=== PATIENT | male | born 1955 | race Caucasian/White ===

== ENCOUNTER 2020-11-26 17:33 | Inpatient (IN) | payer MEDICARE, OTHER ==
[~2020-11-26] VITALS: Ht 162.6 cm; Wt 78.9 kg
[~2020-11-26 17:33] MED LIST: ALBU8.5H8 IH; BUPR-93 PO; BUSP15 PO; DOXY100C5 PO; GABA800T9 PO; LEVO200T10 PO; OLAN5TAB2 PO; OLAN5TAB76 PO; PRED5TAB PO
[2020-11-26 18:10] LABS: BASOPHILS % (AUTO) 0.1 % (0.0-5.0); EOSINOPHILS % (AUTO) 0.4 % (0.0-8.0); HEMATOCRIT 29.7 % (42-54); LYMPHOCYTES % (AUTO) 19.2 % (21.0-51.0); MEAN CORPUSCULAR HEMOGLOBIN 22.6 pg (27.0-33.0); NEUTROPHILS % (AUTO) 74.1 % (40.0-77.0); PLATELET COUNT (AUTO) 330 K/uL (130-400); RED BLOOD CELL COUNT(AUTO) 4.07 MIL/uL (4.50-6.20); RED CELL DISTRIBUTION WIDTH 22.5 % (11.0-15.5); WHITE BLOOD COUNT (AUTO) 8.1 K/uL (4.8-10.8)
[2020-11-26 18:17] LABS: ABG BASE EXCESS 5.8 mmol/L (-2.0-3.0); ABG HCO3 29.6 mmol/L (21.0-28.0); ABG OXYGEN SATURATION 99.1 % (95.0-99.0); ABG PCO2 40 mmHg (35-48)
[2020-11-26] MEDS ORDERED: IPRATROPIUM/ALBUTEROL SULFATE 3 ML SOLUTION IH ONE ×2 (18:23→20:57)
[2020-11-26 18:26] LABS: CREATININE 0.7 mg/dL (0.5-1.5)
[2020-11-26 18:27] LABS: INR 0.96 (0.85-1.15); PROTHROMBIN TIME 10.3 SEC (9.6-11.6)
[2020-11-26] MEDS ORDERED: ASPIRIN 325 MG TABLET ONE (18:27)
[2020-11-26] MEDS ORDERED: SOLU-MEDROL 125MG VIAL ONE (18:27)
[2020-11-26 18:29] LABS: PARTIAL THROMBOPLASTIN TIME 21.9 SEC (26.3-35.5)
[2020-11-26 18:31] LABS: ALBUMIN 3.4 g/dL (3.5-5.0); BILIRUBIN,TOTAL 0.2 mg/dL (0.2-1.0); TOTAL PROTEIN, SERUM 6.4 g/dL (6.0-8.3)
[2020-11-26 18:34] LABS: BILIRUBIN,URINE Negative (NEGATIVE); COLOR,URINE Yellow (YELLOW); GLUCOSE, URINE (UA) Negative (NEGATIVE); KETONES,URINE Negative (NEGATIVE); LEUKOCYTE ESTERASE ,URINE Negative (NEGATIVE); NITRATE,URINE Negative (NEGATIVE); OCCULT BLOOD,URINE Negative (NEGATIVE); PROTEIN,URINE Negative (NEGATIVE)
[2020-11-26 18:48] LABS: APPEARANCE,URINE CLEAR (CLEAR)
[2020-11-26] MEDS ORDERED: ONDANSETRON 4MG INJ ONE (20:15)
[2020-11-26] MEDS ORDERED: MORPHINE 4 MG SYG ONE (20:15)
[2020-11-26] MEDS ORDERED: IOHEXOL-350 75 ML VIAL IV ONE (21:02)
[2020-11-26] MEDS ORDERED: POTASSIUM BICARB/CIT AC 25 MEQ TABLET.EFF ONE (23:38)
[2020-11-27] MEDS ORDERED: CLOPIDOGREL 300MG TAB PO ONE
[2020-11-27] MEDS ORDERED: ATORVASTATIN 20 MG TABLET PO SCH
[2020-11-27] MEDS ORDERED: HEPARIN 25,000 UNITS/250ML D5W 250 ML IV SCH
[2020-11-27] MEDS ORDERED: ONDANSETRON 4MG INJ IV PRN
[2020-11-27] MEDS ORDERED: NITROGLYCERIN 0.4 MG SL TAB SL PRN
[2020-11-27] MEDS ORDERED: NICOTINE 21 MG/ 24 HR PATCH TD SCH
[2020-11-27] MEDS ORDERED: MORPHINE 4 MG SYG IV PRN
[2020-11-27] MEDS ORDERED: ATORVASTATIN 40 MG TABLET ONE (00:46)
[2020-11-27] MEDS ORDERED: CLOPIDOGREL 300MG TAB ONE (00:46)
[2020-11-27] MEDS ORDERED: NITROGLYCERIN 1GM OINT 1 INCH/1GM TD ONE ×2 (00:47→09:30)
[2020-11-27] MEDS ORDERED: HEPARIN 25,000 UNITS/250ML D5W 250 ML IV ONE (00:47)
[2020-11-27] MEDS ORDERED: MORPHINE 4 MG SYG ONE ×2 (00:48→05:54)
[2020-11-27 00:58] LABS: AMPHET/METH SCREEN,URINE NEGATIVE (NEGATIVE); BARBITURATE SCREEN, URINE NEGATIVE (NEGATIVE); BENZODIAZEPINES SCREEN,URINE NEGATIVE (NEGATIVE); CANNABINOID SCREEN,URINE NEGATIVE (NEGATIVE); COCAINE SCREEN,URINE NEGATIVE (NEGATIVE); OPIATE SCREEN,URINE NEGATIVE (NEGATIVE); PHENCYCLIDINE SCREEN,URINE NEGATIVE (NEGATIVE)
[2020-11-27 03:19] LABS: BASOPHILS % (AUTO) 0.2 % (0.0-5.0); HEMATOCRIT 26.4 % (42-54); LYMPHOCYTES % (AUTO) 7.3 % (21.0-51.0); MEAN CORPUSCULAR HEMOGLOBIN 22.3 pg (27.0-33.0); MEAN CORPUSCULAR HGB CONC 31.1 g/dL (32.0-36.0); MEAN CORPUSCULAR VOLUME 71.9 fL (79-99); MONOCYTES % (AUTO) 0.5 % (3.0-13.0); NEUTROPHILS % (AUTO) 91.4 % (40.0-77.0); PLATELET COUNT (AUTO) 304 K/uL (130-400); RED BLOOD CELL COUNT(AUTO) 3.67 MIL/uL (4.50-6.20); RED CELL DISTRIBUTION WIDTH 22.2 % (11.0-15.5); WHITE BLOOD COUNT (AUTO) 6.6 K/uL (4.8-10.8)
[2020-11-27 03:43] LABS: CHOLESTEROL 178 mg/dL (<200); CREATINE KINASE, TOTAL 23 U/L (21-232); HDL CHOLESTEROL 69 mg/dL (29-71); LDL DIRECT 92 mg/dL (0-99); MYOGLOBIN 21 ng/mL (10-92); THYROID STIMULATING HORMONE 7.27 uIU/mL (0.36-3.74); TRIGLYCERIDES 26 mg/dL (30-200); TROPONIN I < 0.04 ng/mL (0.00-0.06)
[2020-11-27] MEDS ORDERED: LIDOCAINE HCL-MPF 1% 2ML VIAL IV PRN (05:00)
[2020-11-27] MEDS ORDERED: POTASSIUM CHLORIDE 10% ELIXIR 20 MEQ/15 ML UDCUP PO PRN (05:00)
[2020-11-27] MEDS ORDERED: POTASSIUM CHLORIDE 20MEQ/100ML 100 ML IV PRN (05:00)
[2020-11-27] MEDS ORDERED: KCL 20 MEQ ERTAB PO PRN (05:00)
[2020-11-27 05:05] LABS: RETICULOCYTE % (AUTO) 1.33 % (0.42-2.23)
[2020-11-27 05:07] LABS: % IRON SATURATION 4.2 % (30-44)
[2020-11-27] MEDS ORDERED: LEVOTHYROXINE 25 MCG TABLET ONE (06:09)
[2020-11-27] MEDS: LEVOTHYROXINE 50 MCG TABLET PO SCH (06:30)
[2020-11-27] MEDS ORDERED: EPOETIN ALFA-EPBX (ESRD) 10,000 UNIT/ML VIAL SQ SCH (07:15)
[2020-11-27] MEDS ORDERED: IRON SUCROSE COMPLEX 300 MG in 0.9%NACL 50ML 50 ML IV SCH (07:15)
[2020-11-27] MEDS: SOLU-MEDROL 40MG VIAL IVP SCH ×3 (07:30→22:42)
[2020-11-27 07:46] LABS: CREATININE 0.9 mg/dL (0.5-1.5); POTASSIUM 4.5 mmol/L (3.5-5.1)
[2020-11-27] MEDS: NITROGLYCERIN 1GM OINT 1 INCH/1GM TD SCH ×3 (08:00→17:49)
[2020-11-27] MEDS ORDERED: IOHEXOL-350 75 ML VIAL IV ONE (08:03)
[2020-11-27 08:26] LABS: HEMATOCRIT 29.3 % (42-54)
[2020-11-27 08:47] LABS: CREATINE KINASE, TOTAL 28 U/L (21-232); MYOGLOBIN 18 ng/mL (10-92); TROPONIN I < 0.04 ng/mL (0.00-0.06)
[2020-11-27] MEDS: CLOPIDOGREL 75MG TAB PO SCH (09:00)
[2020-11-27] MEDS ORDERED: METOPROLOL TARTRATE 25 MG TAB PO SCH (09:00)
[2020-11-27] MEDS: FAMOTIDINE 20MG VIAL IV SCH ×2 (09:00→21:37)
[2020-11-27] MEDS ORDERED: ASPIRIN 325 MG TABLET PO SCH (09:00)
[2020-11-27] MEDS: FERROUS SULFATE 325 MG TABLET.DR PO SCH ×2 (09:00→21:35)
[2020-11-27] MEDS: NICOTINE 21 MG/ 24 HR PATCH TD SCH (09:00)
[2020-11-27] MEDS ORDERED: SOLU-MEDROL 40MG VIAL ONE (09:28)
[2020-11-27] MEDS ORDERED: CLOPIDOGREL 75MG TAB ONE (09:29)
[2020-11-27] MEDS ORDERED: LEVOTHYROXINE 150 MCG TABLET ONE (09:29)
[2020-11-27] MEDS ORDERED: FERROUS SULFATE 325 MG TABLET.DR ONE (09:29)
[2020-11-27] MEDS ORDERED: ASPIRIN 325 MG TABLET ONE (09:29)
[2020-11-27] MEDS ORDERED: FAMOTIDINE 20MG VIAL IV ONE (09:30)
[2020-11-27] MEDS ORDERED: 0.9% NACL 250ML 250 ML IV ONE (09:31)
[2020-11-27] MEDS: IPRATROPIUM/ALBUTEROL SULFATE 3 ML SOLUTION IH SCH ×2 (12:00→18:00)
[2020-11-27] MEDS ORDERED: IOHEXOL 350 MG/ML 100ML INFUS..BTL IV ONE ×2 (12:07→12:13)
[2020-11-27] MEDS ORDERED: LIDOCAINE HCL 400MG/20ML VIAL ONE (12:07)
[2020-11-27] MEDS ORDERED: BIVALIRUDIN 250 MG/VIAL IV ONE (12:07)
[2020-11-27] MEDS ORDERED: IOHEXOL-350 50ML VIAL IV ONE (12:07)
[2020-11-27] MEDS ORDERED: NITROGLYCERIN 2 MG VIAL IV ONE (12:13)
[2020-11-27] MEDS ORDERED: ATROPINE 1MG SYG IVP ONE (12:13)
[2020-11-27] MEDS ORDERED: FENTANYL CITRATE PF 50 MCG/1 ML 2ML VIAL ONE (12:43)
[2020-11-27] MEDS ORDERED: 0.9%NACL 1000ML 1,000 ML IV SCH (13:45)
[2020-11-27 17:30] LABS: CREATINE KINASE, TOTAL 27 U/L (21-232); MYOGLOBIN 22 ng/mL (10-92); TROPONIN I < 0.04 ng/mL (0.00-0.06)
[2020-11-27] MEDS: MORPHINE 2 MG SYG IV PRN ×2 (17:40→22:42)
[2020-11-27] MEDS: BUDESONIDE 0.5 MG/2 ML INH IH SCH (18:00)
[2020-11-27 19:13] LABS: HEMATOCRIT 25.5 % (42-54)
[2020-11-27] MEDS ORDERED: ENOXAPARIN SODIUM 80 MG/0.8 ML SQ SCH (21:00)
[2020-11-27] MEDS ORDERED: ENOXAPARIN SODIUM 1 MG/KG SQ SCH (21:00)
[2020-11-27 21:13] VITALS: BP 121/71
[2020-11-27] MEDS: ALBUTEROL INHALER 90MCG/INH IH SCH (21:34)
[2020-11-27] MEDS: OLANZAPINE 5 MG TAB PO SCH (21:35)
[2020-11-27] MEDS: NAPROXEN 250 MG TAB PO SCH (21:36)
[2020-11-27] MEDS: ATORVASTATIN 40 MG TABLET PO SCH (21:37)
[2020-11-27 23:59] LABS: HEMATOCRIT 24.4 % (42-54)
[2020-11-28] MEDS: NITROGLYCERIN 1GM OINT 1 INCH/1GM TD SCH ×4 (01:23→23:55)
[2020-11-28 01:45] VITALS: BP 114/62
[2020-11-28] MEDS: MORPHINE 2 MG SYG IV PRN ×5 (02:49→21:44)
[2020-11-28 03:49] VITALS: BP 101/51
[2020-11-28 05:56] LABS: CARBON DIOXIDE 30 mmol/L (21-32); CHLORIDE 104 mmol/L (101-111); CREATININE 0.7 mg/dL (0.5-1.5); GLOMERULAR FILTR. RATE CALC 121 mL/min (>60); GLUCOSE,RANDOM 145 mg/dL (70-105); POTASSIUM 4.4 mmol/L (3.5-5.1); SODIUM SERUM 139 mmol/L (136-145); UREA NITROGEN, BLOOD 17 mg/dL (7-18)
[2020-11-28] MEDS: IPRATROPIUM/ALBUTEROL SULFATE 3 ML SOLUTION IH SCH ×3 (06:00→19:01)
[2020-11-28] MEDS: BUDESONIDE 0.5 MG/2 ML INH IH SCH (06:00)
[2020-11-28] MEDS: LEVOTHYROXINE 50 MCG TABLET PO SCH (06:47)
[2020-11-28 07:49] VITALS: BP 97/42
[2020-11-28] MEDS: ASPIRIN 81 MG EC TAB PO SCH (08:29)
[2020-11-28] MEDS: CLOPIDOGREL 75MG TAB PO SCH (08:29)
[2020-11-28] MEDS: FERROUS SULFATE 325 MG TABLET.DR PO SCH ×2 (08:29→20:18)
[2020-11-28] MEDS: FLUOXETINE HCL 20 MG CAPSULE PO SCH (08:29)
[2020-11-28] MEDS: SOLU-MEDROL 40MG VIAL IVP SCH (08:30)
[2020-11-28] MEDS: FAMOTIDINE 20MG VIAL IV SCH ×2 (08:31→20:16)
[2020-11-28] MEDS: NICOTINE 21 MG/ 24 HR PATCH TD SCH (08:32)
[2020-11-28] MEDS: NAPROXEN 250 MG TAB PO SCH ×2 (09:00→21:00)
[2020-11-28] MEDS ORDERED: ENOXAPARIN SODIUM 40 MG/0.4 ML SYRINGE SQ SCH (09:00)
[2020-11-28 09:03] LABS: BASOPHILS % (AUTO) 0.1 % (0.0-5.0); HEMATOCRIT 26.2 % (42-54); LYMPHOCYTES % (AUTO) 7.9 % (21.0-51.0); MEAN CORPUSCULAR HEMOGLOBIN 22.4 pg (27.0-33.0); MEAN CORPUSCULAR HGB CONC 30.5 g/dL (32.0-36.0); MEAN CORPUSCULAR VOLUME 73.4 fL (79-99); MONOCYTES % (AUTO) 5.1 % (3.0-13.0); NEUTROPHILS % (AUTO) 86.4 % (40.0-77.0); PLATELET COUNT (AUTO) 366 K/uL (130-400); RED BLOOD CELL COUNT(AUTO) 3.57 MIL/uL (4.50-6.20); RED CELL DISTRIBUTION WIDTH 22.9 % (11.0-15.5); WHITE BLOOD COUNT (AUTO) 11.2 K/uL (4.8-10.8)
[2020-11-28 10:40] VITALS: BP 109/58
[2020-11-28 14:29] LABS: HEMATOCRIT 25.7 % (42-54)
[2020-11-28 16:00] VITALS: BP 129/80
[2020-11-28] MEDS: ALBUTEROL INHALER 90MCG/INH IH SCH ×2 (18:00→20:19)
[2020-11-28 20:00] VITALS: BP 104/46
[2020-11-28] MEDS: OLANZAPINE 5 MG TAB PO SCH (20:17)
[2020-11-28] MEDS: ATORVASTATIN 40 MG TABLET PO SCH (20:18)
[2020-11-28 20:49] LABS: HEMATOCRIT 25.5 % (42-54)
[2020-11-29] MEDS: IPRATROPIUM/ALBUTEROL SULFATE 3 ML SOLUTION IH SCH ×4 (00:18→18:21)
[2020-11-29 00:48] VITALS: BP 129/76
[2020-11-29] MEDS: MORPHINE 2 MG SYG IV PRN ×5 (01:51→18:35)
[2020-11-29] MEDS: ALBUTEROL INHALER 90MCG/INH IH SCH ×2 (01:52→06:09)
[2020-11-29 04:41] VITALS: BP 108/50
[2020-11-29 05:47] LABS: CREATININE 0.7 mg/dL (0.5-1.5); POTASSIUM 4.2 mmol/L (3.5-5.1)
[2020-11-29] MEDS: LEVOTHYROXINE 50 MCG TABLET PO SCH (06:09)
[2020-11-29] MEDS: BUDESONIDE 0.5 MG/2 ML INH IH SCH ×2 (06:51→18:37)
[2020-11-29] MEDS: NAPROXEN 250 MG TAB PO SCH (09:00)
[2020-11-29] MEDS: FLUOXETINE HCL 20 MG CAPSULE PO SCH (10:01)
[2020-11-29] MEDS: ASPIRIN 81 MG EC TAB PO SCH (10:01)
[2020-11-29] MEDS: CLOPIDOGREL 75MG TAB PO SCH (10:02)
[2020-11-29] MEDS: FERROUS SULFATE 325 MG TABLET.DR PO SCH ×2 (10:02→20:01)
[2020-11-29] MEDS: ATORVASTATIN 20 MG TABLET PO SCH (10:02)
[2020-11-29] MEDS: NICOTINE 21 MG/ 24 HR PATCH TD SCH (10:02)
[2020-11-29] MEDS: FAMOTIDINE 20MG VIAL IV SCH ×2 (10:02→20:01)
[2020-11-29] MEDS: LACTULOSE 20 GM/30 ML UDCUP PO SCH ×2 (16:00→22:15)
[2020-11-29 16:13] LABS: HEMATOCRIT 28.1 % (42-54)
[2020-11-29 16:14] VITALS: BP 114/66
[2020-11-29] MEDS: OLANZAPINE 5 MG TAB PO SCH ×2 (20:01→21:00)
[2020-11-29 20:07] VITALS: BP 102/62
[2020-11-29 22:38] VITALS: BP 102/66
[2020-11-30] MEDS: IPRATROPIUM/ALBUTEROL SULFATE 3 ML SOLUTION IH SCH ×5 (00:28→23:50)
[2020-11-30] MEDS: MORPHINE 2 MG SYG IV PRN ×7 (01:56→23:55)
[2020-11-30 03:19] VITALS: BP 101/60
[2020-11-30 05:26] LABS: BASOPHILS % (AUTO) 0.2 % (0.0-5.0); EOSINOPHILS % (AUTO) 0.7 % (0.0-8.0); LYMPHOCYTES % (AUTO) 32.2 % (21.0-51.0); MEAN CORPUSCULAR HEMOGLOBIN 22.4 pg (27.0-33.0); MEAN CORPUSCULAR HGB CONC 30.4 g/dL (32.0-36.0); MEAN CORPUSCULAR VOLUME 73.9 fL (79-99); MONOCYTES % (AUTO) 8.9 % (3.0-13.0); NEUTROPHILS % (AUTO) 57.5 % (40.0-77.0); PLATELET COUNT (AUTO) 412 K/uL (130-400); RED BLOOD CELL COUNT(AUTO) 3.79 MIL/uL (4.50-6.20); RED CELL DISTRIBUTION WIDTH 23.5 % (11.0-15.5); WHITE BLOOD COUNT (AUTO) 6.1 K/uL (4.8-10.8)
[2020-11-30 05:55] LABS: ALBUMIN 3.2 g/dL (3.5-5.0); BILIRUBIN,TOTAL 0.1 mg/dL (0.2-1.0); CREATININE 0.8 mg/dL (0.5-1.5); POTASSIUM 4.5 mmol/L (3.5-5.1); TOTAL PROTEIN, SERUM 5.8 g/dL (6.0-8.3)
[2020-11-30] MEDS: BUDESONIDE 0.5 MG/2 ML INH IH SCH ×3 (05:57→18:58)
[2020-11-30] MEDS: ALBUTEROL INHALER 90MCG/INH IH SCH ×5 (05:58→23:55)
[2020-11-30] MEDS: LEVOTHYROXINE 50 MCG TABLET PO SCH (06:16)
[2020-11-30] MEDS: LACTULOSE 20 GM/30 ML UDCUP PO SCH ×4 (06:16→19:38)
[2020-11-30] MEDS: ASPIRIN 81 MG EC TAB PO SCH (09:12)
[2020-11-30] MEDS: CLOPIDOGREL 75MG TAB PO SCH (09:12)
[2020-11-30] MEDS: FAMOTIDINE 20MG VIAL IV SCH ×2 (09:12→19:38)
[2020-11-30] MEDS: FLUOXETINE HCL 20 MG CAPSULE PO SCH (09:12)
[2020-11-30] MEDS: NICOTINE 21 MG/ 24 HR PATCH TD SCH (09:12)
[2020-11-30] MEDS: FERROUS SULFATE 325 MG TABLET.DR PO SCH ×2 (09:12→19:37)
[2020-11-30] MEDS: ATORVASTATIN 20 MG TABLET PO SCH (09:18)
[2020-11-30 16:00] VITALS: BP 116/71
[2020-11-30] MEDS ORDERED: FERROUS SULFATE 325 MG TABLET.DR ONE (19:11)
[2020-11-30 19:14] VITALS: BP 108/63
[2020-11-30] MEDS: OLANZAPINE 5 MG TAB PO SCH ×2 (19:37)
[2020-11-30 23:17] VITALS: BP 108/58
[2020-12-01] MEDS: LACTULOSE 20 GM/30 ML UDCUP PO SCH ×4 (03:07→20:20)
[2020-12-01 03:10] VITALS: BP 110/60
[2020-12-01] MEDS: LEVOTHYROXINE 50 MCG TABLET PO SCH (05:22)
[2020-12-01] MEDS: MORPHINE 2 MG SYG IV PRN ×4 (05:23→20:20)
[2020-12-01] MEDS: ALBUTEROL INHALER 90MCG/INH IH SCH ×3 (05:24→20:20)
[2020-12-01 05:42] LABS: BASOPHILS % (AUTO) 0.3 % (0.0-5.0); EOSINOPHILS % (AUTO) 1.9 % (0.0-8.0); HEMATOCRIT 30.2 % (42-54); LYMPHOCYTES % (AUTO) 29.9 % (21.0-51.0); MEAN CORPUSCULAR HEMOGLOBIN 22.6 pg (27.0-33.0); MEAN CORPUSCULAR HGB CONC 30.1 g/dL (32.0-36.0); MEAN CORPUSCULAR VOLUME 75.1 fL (79-99); MONOCYTES % (AUTO) 7.4 % (3.0-13.0); NEUTROPHILS % (AUTO) 59.9 % (40.0-77.0); PLATELET COUNT (AUTO) 456 K/uL (130-400); RED BLOOD CELL COUNT(AUTO) 4.02 MIL/uL (4.50-6.20); WHITE BLOOD COUNT (AUTO) 6.5 K/uL (4.8-10.8)
[2020-12-01 06:14] LABS: ALBUMIN 3.3 g/dL (3.5-5.0); BILIRUBIN,TOTAL 0.1 mg/dL (0.2-1.0); CREATININE 0.7 mg/dL (0.5-1.5); POTASSIUM 4.3 mmol/L (3.5-5.1); TOTAL PROTEIN, SERUM 5.9 g/dL (6.0-8.3)
[2020-12-01] MEDS: IPRATROPIUM/ALBUTEROL SULFATE 3 ML SOLUTION IH SCH ×3 (06:41→23:54)
[2020-12-01] MEDS: BUDESONIDE 0.5 MG/2 ML INH IH SCH ×2 (06:41→18:45)
[2020-12-01] MEDS: ASPIRIN 81 MG EC TAB PO SCH (10:27)
[2020-12-01] MEDS: NICOTINE 21 MG/ 24 HR PATCH TD SCH (10:28)
[2020-12-01] MEDS: FLUOXETINE HCL 20 MG CAPSULE PO SCH (10:28)
[2020-12-01] MEDS: CLOPIDOGREL 75MG TAB PO SCH (10:29)
[2020-12-01] MEDS: ATORVASTATIN 20 MG TABLET PO SCH (10:29)
[2020-12-01] MEDS: FAMOTIDINE 20MG VIAL IV SCH ×2 (10:29→20:19)
[2020-12-01] MEDS: FERROUS SULFATE 325 MG TABLET.DR PO SCH ×3 (10:32→20:19)
[2020-12-01] MEDS: IPRATROPIUM 0.5 MG/2.5 ML INH IH SCH (18:45)
[2020-12-01 20:00] VITALS: BP 106/63
[2020-12-01] MEDS: OLANZAPINE 5 MG TAB PO SCH ×2 (20:19→20:20)
[2020-12-02] VITALS (7 sets, daily range): BP systolic 102–140; BP diastolic 59–78
[2020-12-02] MEDS: IPRATROPIUM 0.5 MG/2.5 ML INH IH SCH
[2020-12-02] MEDS: LACTULOSE 20 GM/30 ML UDCUP PO SCH ×4 (00:19→22:02)
[2020-12-02] MEDS: MORPHINE 2 MG SYG IV PRN (00:24)
[2020-12-02] MEDS: ALBUTEROL INHALER 90MCG/INH IH SCH ×3 (00:25→14:32)
[2020-12-02] MEDS: MORPHINE 2 MG SYG IVP PRN ×3 (04:58→13:17)
[2020-12-02 05:46] LABS: ALBUMIN 3.1 g/dL (3.5-5.0); BILIRUBIN,TOTAL 0.2 mg/dL (0.2-1.0); CREATININE 0.7 mg/dL (0.5-1.5); POTASSIUM 4.2 mmol/L (3.5-5.1); TOTAL PROTEIN, SERUM 5.8 g/dL (6.0-8.3)
[2020-12-02] MEDS: LEVOTHYROXINE 50 MCG TABLET PO SCH (05:58)
[2020-12-02] MEDS: BUDESONIDE 0.5 MG/2 ML INH IH SCH ×2 (06:56→18:46)
[2020-12-02] MEDS: IPRATROPIUM/ALBUTEROL SULFATE 3 ML SOLUTION IH SCH ×3 (06:57→18:46)
[2020-12-02] MEDS: ASPIRIN 81 MG EC TAB PO SCH (09:07)
[2020-12-02] MEDS: CLOPIDOGREL 75MG TAB PO SCH (09:07)
[2020-12-02] MEDS: FLUOXETINE HCL 20 MG CAPSULE PO SCH (09:08)
[2020-12-02] MEDS: FERROUS SULFATE 325 MG TABLET.DR PO SCH ×3 (09:08→22:02)
[2020-12-02] MEDS: ATORVASTATIN 20 MG TABLET PO SCH (09:08)
[2020-12-02] MEDS: FAMOTIDINE 20MG VIAL IV SCH ×2 (09:09→22:02)
[2020-12-02] MEDS: NICOTINE 21 MG/ 24 HR PATCH TD SCH (09:09)
[2020-12-02] MEDS ORDERED: KETOROLAC 30MG VIAL (30MG/ML) ONE (17:34)
[2020-12-02] MEDS: OLANZAPINE 5 MG TAB PO SCH (22:02)
[2020-12-02] MEDS: KETOROLAC 15MG/ML VIAL (15MG/ML) IV PRN (23:44)
[2020-12-03] MEDS: IPRATROPIUM/ALBUTEROL SULFATE 3 ML SOLUTION IH SCH ×4 (00:51→18:50)
[2020-12-03 03:50] VITALS: BP 100/66
[2020-12-03] MEDS: LACTULOSE 20 GM/30 ML UDCUP PO SCH ×4 (04:00→22:52)
[2020-12-03 06:11] LABS: BASOPHILS % (AUTO) 0.4 % (0.0-5.0); EOSINOPHILS % (AUTO) 2.1 % (0.0-8.0); HEMATOCRIT 28.8 % (42-54); LYMPHOCYTES % (AUTO) 24.5 % (21.0-51.0); MEAN CORPUSCULAR HEMOGLOBIN 22.4 pg (27.0-33.0); MEAN CORPUSCULAR HGB CONC 30.2 g/dL (32.0-36.0); MONOCYTES % (AUTO) 8.9 % (3.0-13.0); NEUTROPHILS % (AUTO) 63.6 % (40.0-77.0); PLATELET COUNT (AUTO) 469 K/uL (130-400); RED BLOOD CELL COUNT(AUTO) 3.89 MIL/uL (4.50-6.20); RED CELL DISTRIBUTION WIDTH 24.8 % (11.0-15.5); WHITE BLOOD COUNT (AUTO) 5.6 K/uL (4.8-10.8)
[2020-12-03] MEDS: LEVOTHYROXINE 50 MCG TABLET PO SCH (06:12)
[2020-12-03] MEDS: KETOROLAC 15MG/ML VIAL (15MG/ML) IV PRN (06:33)
[2020-12-03 06:43] LABS: ALBUMIN 3.1 g/dL (3.5-5.0); BILIRUBIN,TOTAL 0.2 mg/dL (0.2-1.0); CREATININE 0.7 mg/dL (0.5-1.5); POTASSIUM 4.2 mmol/L (3.5-5.1); TOTAL PROTEIN, SERUM 5.7 g/dL (6.0-8.3)
[2020-12-03] MEDS: BUDESONIDE 0.5 MG/2 ML INH IH SCH ×2 (06:53→18:50)
[2020-12-03 07:51] VITALS: BP 128/75
[2020-12-03] MEDS: ATORVASTATIN 20 MG TABLET PO SCH (10:47)
[2020-12-03] MEDS: FLUOXETINE HCL 20 MG CAPSULE PO SCH (10:47)
[2020-12-03] MEDS: FERROUS SULFATE 325 MG TABLET.DR PO SCH ×3 (10:47→21:41)
[2020-12-03] MEDS: CLOPIDOGREL 75MG TAB PO SCH (10:47)
[2020-12-03] MEDS: ASPIRIN 81 MG EC TAB PO SCH (10:47)
[2020-12-03] MEDS: FAMOTIDINE 20MG VIAL IV SCH ×2 (10:48→21:41)
[2020-12-03] MEDS: NICOTINE 21 MG/ 24 HR PATCH TD SCH (10:48)
[2020-12-03] MEDS: TRAMADOL HCL 50 MG TABLET PO SCH ×2 (13:45→21:41)
[2020-12-03 13:55] VITALS: BP 112/69
[2020-12-03 17:36] VITALS: BP 120/79
[2020-12-03 19:54] LABS: INR 0.97 (0.85-1.15); PROTHROMBIN TIME 10.4 SEC (9.6-11.6)
[2020-12-03 20:00] VITALS: BP 118/51
[2020-12-03] MEDS: OLANZAPINE 5 MG TAB PO SCH (21:41)
[2020-12-03] MEDS: KETOROLAC 30MG VIAL (30MG/ML) ONE ×2 (22:53→22:57)
[2020-12-04] VITALS: BP 132/72
[2020-12-04] MEDS: IPRATROPIUM/ALBUTEROL SULFATE 3 ML SOLUTION IH SCH ×4 (00:29→18:34)
[2020-12-04] MEDS: TRAMADOL HCL 50 MG TABLET PO SCH ×5 (01:01→18:30)
[2020-12-04] MEDS: LACTULOSE 20 GM/30 ML UDCUP PO SCH ×4 (04:00→22:00)
[2020-12-04] MEDS: LEVOTHYROXINE 50 MCG TABLET PO SCH (06:20)
[2020-12-04] MEDS: BUDESONIDE 0.5 MG/2 ML INH IH SCH ×2 (06:31→18:34)
[2020-12-04 07:59] VITALS: BP 137/73
[2020-12-04] MEDS: ATORVASTATIN 20 MG TABLET PO SCH (08:07)
[2020-12-04] MEDS: CLOPIDOGREL 75MG TAB PO SCH (08:07)
[2020-12-04] MEDS: ASPIRIN 81 MG EC TAB PO SCH (08:07)
[2020-12-04] MEDS: FLUOXETINE HCL 20 MG CAPSULE PO SCH (08:07)
[2020-12-04] MEDS: FERROUS SULFATE 325 MG TABLET.DR PO SCH ×3 (08:07→20:33)
[2020-12-04] MEDS: NICOTINE 21 MG/ 24 HR PATCH TD SCH (08:08)
[2020-12-04] MEDS: KETOROLAC 15MG/ML VIAL (15MG/ML) IV PRN ×3 (08:17→20:33)
[2020-12-04] MEDS: FAMOTIDINE 20MG VIAL IV SCH (09:00)
[2020-12-04 11:46] VITALS: BP 133/76
[2020-12-04 16:56] VITALS: BP 140/77
[2020-12-04 19:30] VITALS: BP 125/77
[2020-12-04] MEDS: FAMOTIDINE 20MG TAB PO SCH (20:33)
[2020-12-04] MEDS: OLANZAPINE 5 MG TAB PO SCH (20:33)
[2020-12-05 01:00] VITALS: BP 138/70
[2020-12-05] MEDS: KETOROLAC 15MG/ML VIAL (15MG/ML) IV PRN ×3 (02:14→14:44)
[2020-12-05] MEDS: TRAMADOL HCL 50 MG TABLET PO SCH ×3 (02:16→12:39)
[2020-12-05 04:00] VITALS: BP 130/84
[2020-12-05] MEDS: LACTULOSE 20 GM/30 ML UDCUP PO SCH ×3 (04:00→16:00)
[2020-12-05 04:30] VITALS: BP 130/76
[2020-12-05 05:26] LABS: MEAN CORPUSCULAR HEMOGLOBIN 23.5 pg (27.0-33.0); MEAN CORPUSCULAR HGB CONC 31.5 g/dL (32.0-36.0); MEAN CORPUSCULAR VOLUME 74.5 fL (79-99); PLATELET COUNT (AUTO) 394 K/uL (130-400); RED BLOOD CELL COUNT(AUTO) 3.49 MIL/uL (4.50-6.20); RED CELL DISTRIBUTION WIDTH 25.3 % (11.0-15.5); WHITE BLOOD COUNT (AUTO) 5.5 K/uL (4.8-10.8)
[2020-12-05] MEDS: LEVOTHYROXINE 50 MCG TABLET PO SCH (06:00)
[2020-12-05 06:14] LABS: ALBUMIN 2.8 g/dL (3.5-5.0); BILIRUBIN,TOTAL 0.2 mg/dL (0.2-1.0); CREATININE 0.6 mg/dL (0.5-1.5); POTASSIUM 3.7 mmol/L (3.5-5.1); TOTAL PROTEIN, SERUM 5.5 g/dL (6.0-8.3)
[2020-12-05] MEDS: IPRATROPIUM/ALBUTEROL SULFATE 3 ML SOLUTION IH SCH ×3 (07:52→11:31)
[2020-12-05] MEDS: BUDESONIDE 0.5 MG/2 ML INH IH SCH (07:52)
[2020-12-05 08:00] VITALS: BP 135/79
[2020-12-05] MEDS: ATORVASTATIN 20 MG TABLET PO SCH (08:41)
[2020-12-05] MEDS: FLUOXETINE HCL 20 MG CAPSULE PO SCH (08:41)
[2020-12-05] MEDS: FERROUS SULFATE 325 MG TABLET.DR PO SCH ×2 (08:42→14:42)
[2020-12-05] MEDS: NICOTINE 21 MG/ 24 HR PATCH TD SCH (08:42)
[2020-12-05] MEDS: FAMOTIDINE 20MG TAB PO SCH (08:42)
[2020-12-05] MEDS: CLOPIDOGREL 75MG TAB PO SCH (08:42)
[2020-12-05] MEDS: ASPIRIN 81 MG EC TAB PO SCH (08:43)
[2020-12-05 12:00] VITALS: BP 132/80
[2020-12-05] MEDS ORDERED: ATOR20TA65 PO (14:53)
[2020-12-05] MEDS ORDERED: FERR-82 PO (14:53)
[2020-12-05] MEDS ORDERED: CLOP75TA14 PO (14:53)
[2020-12-05] MEDS ORDERED: LEVO100C4 PO (16:56)
[2020-12-05] MEDS ORDERED: OLAN5TAB76 PO (16:56)
[2020-12-05] MEDS ORDERED: FLUO40CA49 PO (16:56)
== END 2020-12-05 18:30 | disposition home or self-care (01) | DRG 286 ==
LOC: EDH 17:33 → EEVIPCON 17:33 → EDH 21:51 → EDHIP 23:53 → 3CH 11-27 12:50
PROVIDERS: ADMIT Internal Medicine; ATTEND Internal Medicine
PROC: 4A023N7 Measurement of Cardiac Sampling and Pressure, Left Heart, Percutaneous Approach (ICD-10-PCS; principal; 2020-11-27)
PROC: B2111ZZ Fluoroscopy of Multiple Coronary Arteries using Low Osmolar Contrast (ICD-10-PCS; 2020-11-27)
PROC: B2151ZZ Fluoroscopy of Left Heart using Low Osmolar Contrast (ICD-10-PCS; 2020-11-27)
PROC: B41F1ZZ Fluoroscopy of Right Lower Extremity Arteries using Low Osmolar Contrast (ICD-10-PCS; 2020-11-27)
PROC: 02H633Z Insertion of Infusion Device into Right Atrium, Percutaneous Approach (ICD-10-PCS; 2020-12-03)
PROC: B548ZZA Ultrasonography of Superior Vena Cava, Guidance (ICD-10-PCS; 2020-12-03)
DX: T82.855A Stenosis of coronary artery stent, initial encounter (principal); I50.33 Acute on chronic diastolic (congestive) heart failure; F31.60 Bipolar disorder, current episode mixed, unspecified; E87.1 Hypo-osmolality and hyponatremia; E46 Unspecified protein-calorie malnutrition; R45.851 Suicidal ideations; I25.110 Atherosclerotic heart disease of native coronary artery with unstable angina pectoris; D50.9 Iron deficiency anemia, unspecified; F43.10 Post-traumatic stress disorder, unspecified; J43.9 Emphysema, unspecified; E89.0 Postprocedural hypothyroidism; E87.6 Hypokalemia; Y83.1 Surgical operation with implant of artificial internal device as the cause of abnormal reaction of the patient, or of later complication, without mention of misadventure at the time of the procedure; F60.7 Dependent personality disorder; F17.210 Nicotine dependence, cigarettes, uncomplicated; R79.89 Other specified abnormal findings of blood chemistry; T45.526A Underdosing of antithrombotic drugs, initial encounter; Z20.822 Contact with and (suspected) exposure to COVID-19; Z85.850 Personal history of malignant neoplasm of thyroid; Y92.89 Other specified places as the place of occurrence of the external cause; Z86.718 Personal history of other venous thrombosis and embolism; Z82.49 Family history of ischemic heart disease and other diseases of the circulatory system; Z86.711 Personal history of pulmonary embolism; Z79.899 Other long term (current) drug therapy; Z79.82 Long term (current) use of aspirin; Z79.02 Long term (current) use of antithrombotics/antiplatelets; I25.2 Old myocardial infarction; Z68.29 Body mass index [BMI] 29.0-29.9, adult; I11.0 Hypertensive heart disease with heart failure
CPT/HCPCS: 36415; 36600; 71045; 71046; 78582; 80048; 80053; 80061; 80305; 81003; 82270; 82550; 82803; 82948; 83540; 83550; 83605; 83690; 83874; 83880; 84145; 84443; 84484; 85014; 85018; 85025; 85027; 85045; 85378; 85610; 85730; 87040; 87426; 87804; 93005; 93306; 93356; 93458; 93970; 94640; 94664; 99156; 99157; A9540; A9558; C1760; C1894; G0378; J0461; J0583; J1644; J1756; J1885; J2270; J2405; J2920; J2930; J3010; J3490; J7050; Q9967; U0003

== ENCOUNTER 2020-12-08 17:29 | Inpatient (IN) | payer MEDICARE, OTHER ==
[~2020-12-08] VITALS: Ht 170.2 cm; Wt 68.0 kg
[~2020-12-08 17:29] MED LIST changes: +ATOR20TA65 PO; +CLOP75TA14 PO; +FERR-82 PO; +FLUO40CA49 PO; +LEVO100C4 PO
[2020-12-08] MEDS ORDERED: ASPIRIN 325 MG TABLET ONE (17:36)
[2020-12-08] MEDS ORDERED: SOLU-MEDROL 125MG VIAL ONE ×2 (17:42→17:55)
[2020-12-08] MEDS ORDERED: ALBUTEROL INHALER 90MCG/INH IH ONE (17:55)
[2020-12-08 18:53] LABS: BASOPHILS % (AUTO) 0.4 % (0.0-5.0); EOSINOPHILS % (AUTO) 0.1 % (0.0-8.0); HEMATOCRIT 30.8 % (42-54); LYMPHOCYTES % (AUTO) 19.7 % (21.0-51.0); MEAN CORPUSCULAR HEMOGLOBIN 23.5 pg (27.0-33.0); MEAN CORPUSCULAR HGB CONC 32.8 g/dL (32.0-36.0); MEAN CORPUSCULAR VOLUME 71.6 fL (79-99); MONOCYTES % (AUTO) 10.4 % (3.0-13.0); NEUTROPHILS % (AUTO) 68.7 % (40.0-77.0); PLATELET COUNT (AUTO) 381 K/uL (130-400); RED CELL DISTRIBUTION WIDTH 25.2 % (11.0-15.5); WHITE BLOOD COUNT (AUTO) 7.3 K/uL (4.8-10.8)
[2020-12-08 19:08] LABS: ABG BASE EXCESS -0.3 mmol/L (-2.0-3.0); ABG HCO3 23.6 mmol/L (21.0-28.0); ABG OXYGEN SATURATION 97.6 % (95.0-99.0); ABG PCO2 37 mmHg (35-48)
[2020-12-08 19:13] LABS: ALBUMIN 3.4 g/dL (3.5-5.0); BILIRUBIN,TOTAL 0.4 mg/dL (0.2-1.0); CREATININE 0.5 mg/dL (0.5-1.5); POTASSIUM 3.4 mmol/L (3.5-5.1); TOTAL PROTEIN, SERUM 6.6 g/dL (6.0-8.3)
[2020-12-08 19:27] LABS: INR 0.99 (0.85-1.15); PROTHROMBIN TIME 10.6 SEC (9.6-11.6)
[2020-12-08 19:28] LABS: PARTIAL THROMBOPLASTIN TIME 29.1 SEC (26.3-35.5)
[2020-12-08] MEDS: BUDESONIDE 0.5 MG/2 ML INH IH SCH (21:00)
[2020-12-08] MEDS ORDERED: LACTULOSE 20 GM/30 ML UDCUP PO PRN (21:00)
[2020-12-08] MEDS: NITROGLYCERIN 1GM OINT 1 INCH/1GM TD SCH (21:00)
[2020-12-08] MEDS: METOPROLOL TARTRATE 25 MG TAB PO SCH (21:00)
[2020-12-08] MEDS ORDERED: ACETAMINOPHEN 325 MG TAB PO PRN ×2 (21:00)
[2020-12-08] MEDS: 0.9%NACL 1000ML 1,000 ML IV SCH (21:00)
[2020-12-08] MEDS ORDERED: ONDANSETRON 4MG INJ IV PRN (21:00)
[2020-12-08] MEDS: FAMOTIDINE 20MG TAB PO SCH (21:00)
[2020-12-08] MEDS ORDERED: ACETAMINOPHEN 325 MG TAB ONE (21:58)
[2020-12-08] MEDS ORDERED: LEVOFLOXACIN 500 MG/D5W 100 ML 100 ML ONE (21:58)
[2020-12-08 22:08] LABS: CREATINE KINASE, TOTAL 52 U/L (21-232); MYOGLOBIN 22 ng/mL (10-92); TROPONIN I < 0.04 ng/mL (0.00-0.06)
[2020-12-08 22:25] LABS: AMPHET/METH SCREEN,URINE NEGATIVE (NEGATIVE); BARBITURATE SCREEN, URINE NEGATIVE (NEGATIVE); BENZODIAZEPINES SCREEN,URINE NEGATIVE (NEGATIVE); CANNABINOID SCREEN,URINE NEGATIVE (NEGATIVE); COCAINE SCREEN,URINE NEGATIVE (NEGATIVE); OPIATE SCREEN,URINE NEGATIVE (NEGATIVE); PHENCYCLIDINE SCREEN,URINE NEGATIVE (NEGATIVE)
[2020-12-08] MEDS: CLOPIDOGREL 75MG TAB PO SCH (22:30)
[2020-12-08] MEDS ORDERED: IPRATROPIUM/ALBUTEROL SULFATE 3 ML SOLUTION IH ONE (23:58)
[2020-12-09] MEDS: IPRATROPIUM/ALBUTEROL SULFATE 3 ML SOLUTION IH SCH
[2020-12-09] MEDS ORDERED: FAMOTIDINE 20MG TAB ONE ×2 (00:02→08:19)
[2020-12-09] MEDS ORDERED: CLOPIDOGREL 75MG TAB ONE ×2 (00:02→08:19)
[2020-12-09] MEDS ORDERED: METOPROLOL TARTRATE 25 MG TAB ONE ×2 (00:03→08:20)
[2020-12-09] MEDS ORDERED: NITROGLYCERIN 1GM OINT 1 INCH/1GM TD ONE (00:03)
[2020-12-09] MEDS ORDERED: PREDNISONE 20 MG TABLET ONE ×2 (00:08→08:19)
[2020-12-09] MEDS: NITROGLYCERIN 1GM OINT 1 INCH/1GM TD SCH ×4 (05:00→23:28)
[2020-12-09 05:27] LABS: CREATINE KINASE, TOTAL 67 U/L (21-232); MYOGLOBIN 24 ng/mL (10-92); TROPONIN I < 0.04 ng/mL (0.00-0.06)
[2020-12-09 05:30] LABS: BASOPHILS % (AUTO) 0.2 % (0.0-5.0); EOSINOPHILS % (AUTO) 0.2 % (0.0-8.0); HEMATOCRIT 29.1 % (42-54); LYMPHOCYTES % (AUTO) 5.4 % (21.0-51.0); MEAN CORPUSCULAR HEMOGLOBIN 23.7 pg (27.0-33.0); MEAN CORPUSCULAR HGB CONC 32.6 g/dL (32.0-36.0); MEAN CORPUSCULAR VOLUME 72.6 fL (79-99); MONOCYTES % (AUTO) 1.5 % (3.0-13.0); NEUTROPHILS % (AUTO) 92.2 % (40.0-77.0); PLATELET COUNT (AUTO) 368 K/uL (130-400); RED BLOOD CELL COUNT(AUTO) 4.01 MIL/uL (4.50-6.20); RED CELL DISTRIBUTION WIDTH 24.9 % (11.0-15.5); WHITE BLOOD COUNT (AUTO) 9.8 K/uL (4.8-10.8)
[2020-12-09 05:39] LABS: CREATININE 0.5 mg/dL (0.5-1.5); POTASSIUM 4.2 mmol/L (3.5-5.1)
[2020-12-09] MEDS ORDERED: LEVOTHYROXINE 150 MCG TABLET ONE (06:26)
[2020-12-09] MEDS: LEVOTHYROXINE 100 MCG TABLET PO SCH (06:30)
[2020-12-09] MEDS: 0.9%NACL 1000ML 1,000 ML IV SCH ×2 (07:00→16:37)
[2020-12-09] MEDS ORDERED: ENOXAPARIN SODIUM 40 MG/0.4 ML SYRINGE SQ ONE (08:20)
[2020-12-09] MEDS: PREDNISONE 20 MG TABLET PO SCH (09:00)
[2020-12-09] MEDS: METOPROLOL TARTRATE 25 MG TAB PO SCH ×2 (09:00→19:48)
[2020-12-09] MEDS: CLOPIDOGREL 75MG TAB PO SCH ×2 (09:00→23:06)
[2020-12-09] MEDS: BUSPIRONE HCL 5 MG TABLET PO SCH ×3 (09:00→19:47)
[2020-12-09] MEDS: ENOXAPARIN SODIUM 40 MG/0.4 ML SYRINGE SQ SCH (09:00)
[2020-12-09] MEDS: ASPIRIN 325 MG TABLET PO SCH (09:00)
[2020-12-09] MEDS: FAMOTIDINE 20MG TAB PO SCH ×2 (09:00→19:48)
[2020-12-09 10:16] VITALS: BP 109/50
[2020-12-09] MEDS: CEFTRIAXONE 1G VIAL IVP SCH (12:30)
[2020-12-09] MEDS: AZITHROMYCIN 500MG+NS 250ML 250 ML IV SCH (12:30)
[2020-12-09 13:11] LABS: CARBON DIOXIDE 26 mmol/L (21-32); CHLORIDE 94 mmol/L (101-111); CREATINE KINASE, TOTAL 52 U/L (21-232); CREATININE 0.6 mg/dL (0.5-1.5); GLOMERULAR FILTR. RATE CALC 145 mL/min (>60); GLUCOSE,RANDOM 120 mg/dL (70-105); MYOGLOBIN 21 ng/mL (10-92); POTASSIUM 4.2 mmol/L (3.5-5.1); SODIUM SERUM 129 mmol/L (136-145); TROPONIN I < 0.04 ng/mL (0.00-0.06); UREA NITROGEN, BLOOD 6 mg/dL (7-18)
[2020-12-09 16:18] VITALS: BP 133/82
[2020-12-09] MEDS: OLANZAPINE 5 MG TAB PO SCH (19:47)
[2020-12-09] MEDS: ATORVASTATIN 20 MG TABLET PO SCH (19:48)
[2020-12-09] MEDS: MORPHINE 2 MG SYG IM PRN (19:59)
[2020-12-09 20:00] VITALS: BP 119/71
[2020-12-09] MEDS: BUDESONIDE 0.5 MG/2 ML INH IH SCH (21:00)
[2020-12-09 23:46] VITALS: BP 113/64
[2020-12-10] MEDS: MORPHINE 2 MG SYG IM PRN ×5 (00:03→19:05)
[2020-12-10] MEDS: 0.9%NACL 1000ML 1,000 ML IV SCH ×2 (03:00→13:00)
[2020-12-10 04:00] VITALS: BP 117/68
[2020-12-10] MEDS: LEVOTHYROXINE 100 MCG TABLET PO SCH (06:18)
[2020-12-10 06:30] LABS: BASOPHILS % (AUTO) 0.2 % (0.0-5.0); EOSINOPHILS % (AUTO) 0.2 % (0.0-8.0); HEMATOCRIT 31.2 % (42-54); LYMPHOCYTES % (AUTO) 17.2 % (21.0-51.0); MEAN CORPUSCULAR HEMOGLOBIN 23.5 pg (27.0-33.0); MEAN CORPUSCULAR HGB CONC 31.7 g/dL (32.0-36.0); MEAN CORPUSCULAR VOLUME 73.9 fL (79-99); MONOCYTES % (AUTO) 9.9 % (3.0-13.0); PLATELET COUNT (AUTO) 420 K/uL (130-400); RED BLOOD CELL COUNT(AUTO) 4.22 MIL/uL (4.50-6.20); RED CELL DISTRIBUTION WIDTH 26.5 % (11.0-15.5); WHITE BLOOD COUNT (AUTO) 12.6 K/uL (4.8-10.8)
[2020-12-10 06:49] LABS: ALBUMIN 3.4 g/dL (3.5-5.0); BILIRUBIN,TOTAL 0.3 mg/dL (0.2-1.0); CREATININE 0.8 mg/dL (0.5-1.5); POTASSIUM 4.1 mmol/L (3.5-5.1); TOTAL PROTEIN, SERUM 7.2 g/dL (6.0-8.3)
[2020-12-10 08:17] VITALS: BP 124/76
[2020-12-10] MEDS ORDERED: IOHEXOL-350 75 ML VIAL IV ONE (10:44)
[2020-12-10] MEDS: ASPIRIN 325 MG TABLET PO SCH (11:35)
[2020-12-10] MEDS: FAMOTIDINE 20MG TAB PO SCH ×2 (11:36→21:13)
[2020-12-10] MEDS: PREDNISONE 20 MG TABLET PO SCH (11:36)
[2020-12-10] MEDS: BUSPIRONE HCL 5 MG TABLET PO SCH ×3 (11:36→21:13)
[2020-12-10] MEDS: AZITHROMYCIN 500MG+NS 250ML 250 ML IV SCH (11:37)
[2020-12-10] MEDS: METOPROLOL TARTRATE 25 MG TAB PO SCH ×2 (11:37→21:14)
[2020-12-10] MEDS: ENOXAPARIN SODIUM 40 MG/0.4 ML SYRINGE SQ SCH (11:37)
[2020-12-10] MEDS: CEFTRIAXONE 1G VIAL IVP SCH (11:37)
[2020-12-10] MEDS: CLOPIDOGREL 75MG TAB PO SCH (11:43)
[2020-12-10 12:30] VITALS: BP 133/79
[2020-12-10] MEDS: NITROGLYCERIN 1GM OINT 1 INCH/1GM TD SCH ×2 (13:00→21:17)
[2020-12-10] MEDS: NICOTINE 21 MG/ 24 HR PATCH TD SCH (13:02)
[2020-12-10] MEDS: IPRATROPIUM/ALBUTEROL SULFATE 3 ML SOLUTION IH SCH ×4 (13:05→21:49)
[2020-12-10] MEDS: BUDESONIDE 0.5 MG/2 ML INH IH SCH ×2 (13:05→18:37)
[2020-12-10 19:15] VITALS: BP 111/59
[2020-12-10 20:00] VITALS: BP 113/61
[2020-12-10] MEDS: ATORVASTATIN 20 MG TABLET PO SCH (21:13)
[2020-12-10] MEDS: OLANZAPINE 5 MG TAB PO SCH (21:13)
[2020-12-10 21:35] LABS: APPEARANCE,URINE Clear (CLEAR); BILIRUBIN,URINE Negative (NEGATIVE); COLOR,URINE Yellow (YELLOW); GLUCOSE, URINE (UA) Negative (NEGATIVE); KETONES,URINE Negative (NEGATIVE); LEUKOCYTE ESTERASE ,URINE Negative (NEGATIVE); NITRATE,URINE Negative (NEGATIVE); OCCULT BLOOD,URINE Negative (NEGATIVE); PH,URINE 5.5 (5.0-8.0); PROTEIN,URINE Negative (NEGATIVE); UROBILINOGEN,URINE 0.2 mg/dL (0.2-1.0)
[2020-12-10 21:36] LABS: SODIUM,URINE RANDOM 69 mmol/l (40-220)
[2020-12-10 23:57] VITALS: BP 109/54
[2020-12-10] MEDS: MORPHINE 2 MG SYG IV PRN (23:58)
[2020-12-11] MEDS: IPRATROPIUM/ALBUTEROL SULFATE 3 ML SOLUTION IH SCH ×7 (03:03→21:53)
[2020-12-11] MEDS: 0.9%NACL 1000ML 1,000 ML IV SCH (03:48)
[2020-12-11] MEDS: NITROGLYCERIN 1GM OINT 1 INCH/1GM TD SCH ×3 (03:52→21:00)
[2020-12-11 04:00] VITALS: BP 115/54
[2020-12-11] MEDS: MORPHINE 2 MG SYG IV PRN ×4 (04:03→20:35)
[2020-12-11 04:26] LABS: HEMATOCRIT 26.4 % (42-54); MEAN CORPUSCULAR HEMOGLOBIN 24.3 pg (27.0-33.0); MEAN CORPUSCULAR HGB CONC 32.2 g/dL (32.0-36.0); MEAN CORPUSCULAR VOLUME 75.4 fL (79-99); PLATELET COUNT (AUTO) 304 K/uL (130-400); RED CELL DISTRIBUTION WIDTH 27.2 % (11.0-15.5); WHITE BLOOD COUNT (AUTO) 6.1 K/uL (4.8-10.8)
[2020-12-11 04:41] LABS: ALBUMIN 3.4 g/dL (3.5-5.0); BILIRUBIN,TOTAL 0.2 mg/dL (0.2-1.0); CREATININE 0.8 mg/dL (0.5-1.5); POTASSIUM 3.6 mmol/L (3.5-5.1); TOTAL PROTEIN, SERUM 6.2 g/dL (6.0-8.3)
[2020-12-11] MEDS: LEVOTHYROXINE 100 MCG TABLET PO SCH (06:17)
[2020-12-11] MEDS: BUDESONIDE 0.5 MG/2 ML INH IH SCH ×2 (06:28→18:24)
[2020-12-11 06:37] LABS: LYMPHOCYTES % (MANUAL) 13 % (22-44); MAN.DIFF COMMENT-IMPRESSION MANUAL DIFFERENTIAL; MONOCYTES % (MANUAL) 7 % (2-9); SEGMENTED NEUTROPHILS % 80 % (40-70)
[2020-12-11 06:39] LABS: PLATELET MORPHOLOGY COMMENT ADEQUATE
[2020-12-11 08:00] VITALS: BP 118/67
[2020-12-11] MEDS: CLOPIDOGREL 75MG TAB PO SCH (08:11)
[2020-12-11] MEDS: ASPIRIN 325 MG TABLET PO SCH (08:11)
[2020-12-11] MEDS: NICOTINE 21 MG/ 24 HR PATCH TD SCH (08:11)
[2020-12-11] MEDS: PREDNISONE 20 MG TABLET PO SCH (08:11)
[2020-12-11] MEDS: METOPROLOL TARTRATE 25 MG TAB PO SCH ×2 (08:11→20:34)
[2020-12-11] MEDS: FAMOTIDINE 20MG TAB PO SCH ×2 (08:11→20:34)
[2020-12-11] MEDS: ENOXAPARIN SODIUM 40 MG/0.4 ML SYRINGE SQ SCH (08:12)
[2020-12-11 11:00] VITALS: BP 124/61
[2020-12-11] MEDS: BUSPIRONE HCL 5 MG TABLET PO SCH ×3 (11:58→20:34)
[2020-12-11] MEDS: CEFTRIAXONE 1G VIAL IVP SCH (12:31)
[2020-12-11] MEDS: AZITHROMYCIN 500MG+NS 250ML 250 ML IV SCH (12:31)
[2020-12-11 16:00] VITALS: BP 130/72
[2020-12-11 19:10] VITALS: BP 128/63
[2020-12-11] MEDS: OLANZAPINE 5 MG TAB PO SCH (20:34)
[2020-12-11] MEDS: ATORVASTATIN 20 MG TABLET PO SCH (20:34)
[2020-12-11 23:42] VITALS: BP 126/62
[2020-12-12] MEDS: IPRATROPIUM/ALBUTEROL SULFATE 3 ML SOLUTION IH SCH ×6 (02:10→21:08)
[2020-12-12 03:20] VITALS: BP 144/51
[2020-12-12] MEDS: MORPHINE 2 MG SYG IV PRN ×5 (03:35→21:37)
[2020-12-12] MEDS: NITROGLYCERIN 1GM OINT 1 INCH/1GM TD SCH ×3 (04:57→21:33)
[2020-12-12] MEDS: LEVOTHYROXINE 100 MCG TABLET PO SCH (04:57)
[2020-12-12 05:16] LABS: BASOPHILS % (AUTO) 0.2 % (0.0-5.0); HEMATOCRIT 23.1 % (42-54); LYMPHOCYTES % (AUTO) 28.4 % (21.0-51.0); MEAN CORPUSCULAR HEMOGLOBIN 23.6 pg (27.0-33.0); MEAN CORPUSCULAR HGB CONC 30.7 g/dL (32.0-36.0); MEAN CORPUSCULAR VOLUME 76.7 fL (79-99); MONOCYTES % (AUTO) 7.7 % (3.0-13.0); NEUTROPHILS % (AUTO) 63.5 % (40.0-77.0); PLATELET COUNT (AUTO) 245 K/uL (130-400); RED BLOOD CELL COUNT(AUTO) 3.01 MIL/uL (4.50-6.20); RED CELL DISTRIBUTION WIDTH 27.5 % (11.0-15.5); WHITE BLOOD COUNT (AUTO) 5.4 K/uL (4.8-10.8)
[2020-12-12 05:38] LABS: ALBUMIN 2.8 g/dL (3.5-5.0); BILIRUBIN,TOTAL 0.1 mg/dL (0.2-1.0); CREATININE 0.5 mg/dL (0.5-1.5)
[2020-12-12] MEDS: BUDESONIDE 0.5 MG/2 ML INH IH SCH ×2 (06:34→19:23)
[2020-12-12] MEDS ORDERED: POTASSIUM CHLORIDE 20MEQ/100ML 100 ML IV PRN (07:00)
[2020-12-12] MEDS ORDERED: KCL 20 MEQ ERTAB PO PRN (07:00)
[2020-12-12] MEDS ORDERED: LIDOCAINE HCL-MPF 1% 2ML VIAL IV PRN (07:00)
[2020-12-12] MEDS ORDERED: MAGNESIUM 2GM PREMIX 50ML 50 ML IV PRN (07:00)
[2020-12-12] MEDS: NICOTINE 21 MG/ 24 HR PATCH TD SCH (08:09)
[2020-12-12] MEDS: ENOXAPARIN SODIUM 40 MG/0.4 ML SYRINGE SQ SCH (08:10)
[2020-12-12] MEDS: ASPIRIN 325 MG TABLET PO SCH (08:10)
[2020-12-12] MEDS: METOPROLOL TARTRATE 25 MG TAB PO SCH ×2 (08:10→21:31)
[2020-12-12] MEDS: FAMOTIDINE 20MG TAB PO SCH ×2 (08:10→21:31)
[2020-12-12] MEDS: PREDNISONE 20 MG TABLET PO SCH (08:10)
[2020-12-12] MEDS: CLOPIDOGREL 75MG TAB PO SCH (08:11)
[2020-12-12 08:28] VITALS: BP 118/68
[2020-12-12] MEDS: BUSPIRONE HCL 5 MG TABLET PO SCH ×3 (09:40→21:31)
[2020-12-12] MEDS: POTASSIUM CHLORIDE 10% ELIXIR 20 MEQ/15 ML UDCUP PO PRN ×3 (10:50→17:21)
[2020-12-12 11:32] VITALS: BP 129/67
[2020-12-12] MEDS: CEFTRIAXONE 1G VIAL IVP SCH (12:51)
[2020-12-12] MEDS: AZITHROMYCIN 500MG+NS 250ML 250 ML IV SCH (12:51)
[2020-12-12 15:57] VITALS: BP 118/65
[2020-12-12 19:38] VITALS: BP 130/62
[2020-12-12] MEDS: OLANZAPINE 5 MG TAB PO SCH (21:31)
[2020-12-12] MEDS: ATORVASTATIN 20 MG TABLET PO SCH (21:31)
[2020-12-12 23:17] VITALS: BP 122/73
[2020-12-13] MEDS: MORPHINE 2 MG SYG IV PRN ×5 (02:23→20:31)
[2020-12-13] MEDS: IPRATROPIUM/ALBUTEROL SULFATE 3 ML SOLUTION IH SCH ×6 (03:06→21:35)
[2020-12-13 03:39] VITALS: BP 128/70
[2020-12-13] MEDS: LEVOTHYROXINE 100 MCG TABLET PO SCH (06:22)
[2020-12-13] MEDS: BUDESONIDE 0.5 MG/2 ML INH IH SCH ×2 (06:22→18:42)
[2020-12-13] MEDS: NITROGLYCERIN 1GM OINT 1 INCH/1GM TD SCH ×3 (06:25→19:56)
[2020-12-13 06:33] LABS: BASOPHILS % (AUTO) 0.4 % (0.0-5.0); EOSINOPHILS % (AUTO) 2.5 % (0.0-8.0); HEMATOCRIT 27.2 % (42-54); LYMPHOCYTES % (AUTO) 31.5 % (21.0-51.0); MEAN CORPUSCULAR HEMOGLOBIN 23.9 pg (27.0-33.0); MEAN CORPUSCULAR HGB CONC 30.9 g/dL (32.0-36.0); MEAN CORPUSCULAR VOLUME 77.5 fL (79-99); MONOCYTES % (AUTO) 7.3 % (3.0-13.0); PLATELET COUNT (AUTO) 300 K/uL (130-400); RED BLOOD CELL COUNT(AUTO) 3.51 MIL/uL (4.50-6.20); RED CELL DISTRIBUTION WIDTH 27.4 % (11.0-15.5); WHITE BLOOD COUNT (AUTO) 6.7 K/uL (4.8-10.8)
[2020-12-13 07:02] LABS: ALBUMIN 3.6 g/dL (3.5-5.0); BILIRUBIN,TOTAL 0.1 mg/dL (0.2-1.0); CREATININE 0.6 mg/dL (0.5-1.5); TOTAL PROTEIN, SERUM 6.3 g/dL (6.0-8.3)
[2020-12-13 07:25] VITALS: BP 136/78
[2020-12-13] MEDS: CLOPIDOGREL 75MG TAB PO SCH (09:00)
[2020-12-13 10:58] VITALS: BP 130/74
[2020-12-13] MEDS: BUSPIRONE HCL 5 MG TABLET PO SCH ×3 (11:10→19:56)
[2020-12-13] MEDS: ASPIRIN 325 MG TABLET PO SCH (11:10)
[2020-12-13] MEDS: FAMOTIDINE 20MG TAB PO SCH ×2 (11:12→19:56)
[2020-12-13] MEDS: METOPROLOL TARTRATE 25 MG TAB PO SCH ×2 (11:12→19:56)
[2020-12-13] MEDS: PREDNISONE 20 MG TABLET PO SCH (11:12)
[2020-12-13] MEDS: NICOTINE 21 MG/ 24 HR PATCH TD SCH (11:13)
[2020-12-13 15:54] VITALS: BP 137/76
[2020-12-13 19:39] VITALS: BP 106/60
[2020-12-13] MEDS: OLANZAPINE 5 MG TAB PO SCH (19:56)
[2020-12-13] MEDS: ATORVASTATIN 20 MG TABLET PO SCH (19:56)
[2020-12-13 23:30] VITALS: BP 107/55
[2020-12-14] MEDS: MORPHINE 2 MG SYG IV PRN ×4 (00:51→14:41)
[2020-12-14] MEDS: IPRATROPIUM/ALBUTEROL SULFATE 3 ML SOLUTION IH SCH ×5 (01:24→14:52)
[2020-12-14 03:30] VITALS: BP 104/64
[2020-12-14] MEDS: LEVOTHYROXINE 100 MCG TABLET PO SCH (05:08)
[2020-12-14] MEDS: NITROGLYCERIN 1GM OINT 1 INCH/1GM TD SCH ×2 (05:09→13:00)
[2020-12-14 05:48] LABS: BASOPHILS % (AUTO) 0.3 % (0.0-5.0); HEMATOCRIT 29.6 % (42-54); LYMPHOCYTES % (AUTO) 23.7 % (21.0-51.0); MEAN CORPUSCULAR HEMOGLOBIN 24.2 pg (27.0-33.0); MEAN CORPUSCULAR HGB CONC 30.7 g/dL (32.0-36.0); MEAN CORPUSCULAR VOLUME 78.7 fL (79-99); MONOCYTES % (AUTO) 6.2 % (3.0-13.0); NEUTROPHILS % (AUTO) 69.4 % (40.0-77.0); PLATELET COUNT (AUTO) 297 K/uL (130-400); RED BLOOD CELL COUNT(AUTO) 3.76 MIL/uL (4.50-6.20); RED CELL DISTRIBUTION WIDTH 27.9 % (11.0-15.5); WHITE BLOOD COUNT (AUTO) 7.8 K/uL (4.8-10.8)
[2020-12-14 06:19] LABS: ALBUMIN 3.6 g/dL (3.5-5.0); BILIRUBIN,TOTAL 0.2 mg/dL (0.2-1.0); CREATININE 0.7 mg/dL (0.5-1.5); POTASSIUM 4.1 mmol/L (3.5-5.1); TOTAL PROTEIN, SERUM 6.5 g/dL (6.0-8.3)
[2020-12-14] MEDS: BUDESONIDE 0.5 MG/2 ML INH IH SCH ×2 (06:34→10:44)
[2020-12-14 07:16] VITALS: BP 110/57
[2020-12-14] MEDS: FAMOTIDINE 20MG TAB PO SCH (10:15)
[2020-12-14] MEDS: ASPIRIN 325 MG TABLET PO SCH (10:15)
[2020-12-14] MEDS: METOPROLOL TARTRATE 25 MG TAB PO SCH (10:16)
[2020-12-14] MEDS: PREDNISONE 20 MG TABLET PO SCH (10:16)
[2020-12-14] MEDS: BUSPIRONE HCL 5 MG TABLET PO SCH ×2 (10:16→14:42)
[2020-12-14] MEDS: CLOPIDOGREL 75MG TAB PO SCH (10:16)
[2020-12-14] MEDS: NICOTINE 21 MG/ 24 HR PATCH TD SCH (10:30)
[2020-12-14 10:38] VITALS: BP 119/63
[2020-12-14 15:42] VITALS: BP 115/59
== END 2020-12-14 17:20 | disposition home or self-care (01) | DRG 190 ==
LOC: EDH 17:29 → EDHIP 20:46 → OBSVTOIN 20:46 → 3BH 12-09 09:44
PROVIDERS: ADMIT Internal Medicine; ATTEND Internal Medicine
PROC: B548ZZA Ultrasonography of Superior Vena Cava, Guidance (ICD-10-PCS; 2020-11-28)
PROC: 02HV33Z Insertion of Infusion Device into Superior Vena Cava, Percutaneous Approach (ICD-10-PCS; principal; 2020-12-08)
DX: J43.9 Emphysema, unspecified (principal); J15.9 Unspecified bacterial pneumonia; E87.1 Hypo-osmolality and hyponatremia; E87.6 Hypokalemia; D64.9 Anemia, unspecified; E78.5 Hyperlipidemia, unspecified; E87.8 Other disorders of electrolyte and fluid balance, not elsewhere classified; E89.0 Postprocedural hypothyroidism; F17.210 Nicotine dependence, cigarettes, uncomplicated; F31.9 Bipolar disorder, unspecified; Z20.822 Contact with and (suspected) exposure to COVID-19; F43.10 Post-traumatic stress disorder, unspecified; I10 Essential (primary) hypertension; I25.10 Atherosclerotic heart disease of native coronary artery without angina pectoris; K44.9 Diaphragmatic hernia without obstruction or gangrene; E78.00 Pure hypercholesterolemia, unspecified; Z85.850 Personal history of malignant neoplasm of thyroid; Z59.0 Homelessness; Z91.19 Patient's noncompliance with other medical treatment and regimen; Z95.5 Presence of coronary angioplasty implant and graft; Z82.49 Family history of ischemic heart disease and other diseases of the circulatory system
CPT/HCPCS: 36415; 36600; 71045; 71275; 80048; 80053; 80305; 81003; 82270; 82550; 82803; 83735; 83874; 83880; 83935; 84145; 84295; 84300; 84484; 85025; 85378; 85610; 85730; 86140; 87040; 87071; 87205; 87426; 87449; 93005; 94640; 94664; 94760; G0378; J0456; J0696; J1650; J1956; J2930; J3475; J3480; J7030; Q9967; U0003